=== PATIENT | male | born 1935 | race Caucasian/White ===

== ENCOUNTER 2022-02-13 23:29 | Observation (INO) | payer OTHER, MEDICARE ==
[~2022-02-13] VITALS: Ht 188 cm; Wt 104.3 kg
[2022-02-13 23:47] LABS: BASOPHILS ABSOLUTE AUTO 0.01 K/mm3 (0.00-0.23); BASOPHILS PERCENT AUTO 0 % (0-2); EOSINOPHILS ABSOLUTE AUTO 0.12 K/mm3 (0.00-0.68); EOSINOPHILS PERCENT AUTO 4 % (0-6); Hematocrit 31.5 % (37.0-53.0); Hemoglobin 9.8 g/dL (13.5-17.5); IMMATURE GRAN ABSOLUTE AUTO 0.01 K/mm3 (0.00-0.10); IMMATURE GRAN PERCENT AUTO 0 % (0-1); LYMPHOCYTES PERCENT AUTO 25 % (21-46); MONOCYTES ABSOLUTE AUTO 0.43 K/mm3 (0.16-1.47); MONOCYTES PERCENT AUTO 14 % (4-13); Mean Corpuscular HGB 28.6 pg (26.0-34.0); Mean Corpuscular HGB Conc 31.1 g/dL (31.5-36.5); Mean Corpuscular Volume 92 fL (80-100); Mean Platelet Volume 10.4 fL (9.1-12.4); NEUTROPHILS ABSOLUTE AUTO 1.81 K/mm3 (1.96-9.15); NEUTROPHILS PERCENT AUTO 57 % (41-73); Platelet Count 117 K/mm3 (150-400); RDW Coefficient Variation 17.1 % (11.7-14.2); RDW Standard Deviation 57.6 fL (35.1-46.3); Red Blood Cell Count 3.43 M/mm3 (4.30-5.90); White Blood Cell Count 3.18 K/mm3 (4.00-11.30)
[2022-02-13] MEDS ORDERED: ATOR20 PO (23:48)
[2022-02-13] MEDS ORDERED: ASCO500 PO (23:48)
[2022-02-13] MEDS ORDERED: AMLO5 PO (23:48)
[2022-02-13] MEDS ORDERED: Carvedilol12.5 MG PO (23:49)
[2022-02-13] MEDS ORDERED: B-12500 MC2 PO (23:49)
[2022-02-13] MEDS ORDERED: Voltaren100 GM TOP (23:50)
[2022-02-13] MEDS ORDERED: Epogen SC (23:51)
[2022-02-13] MEDS ORDERED: Flonase 0.05% N16 GM (23:51)
[2022-02-13] MEDS ORDERED: FOLI1 PO (23:52)
[2022-02-13] MEDS ORDERED: GABA300 PO (23:52)
[2022-02-13] MEDS ORDERED: BASAGLAR K100 UNIT/1 SC (23:52)
[2022-02-13] MEDS ORDERED: MIRT15ST PO (23:53)
[2022-02-13] MEDS ORDERED: LORA10ER PO (23:53)
[2022-02-13] MEDS ORDERED: ISOSORBIDE MONO60 MG PO (23:53)
[2022-02-13] MEDS ORDERED: MIRALAX17 GM PO (23:54)
[2022-02-13] MEDS ORDERED: Coumadin3 MG PO (23:54)
[2022-02-13] MEDS ORDERED: Coumadin2 MG PO (23:54)
[2022-02-13] MEDS ORDERED: ALBU2.5V5 INH (23:55)
[2022-02-13] MEDS ORDERED: ACET325 PO (23:55)
[2022-02-13] MEDS ORDERED: NITR.4SL SL (23:56)
[2022-02-13] MEDS ORDERED: ONDA4ODT MM (23:57)
[2022-02-14] LABS: Albumin, Blood 2.9 g/dL (3.4-5.0); Albumin/Globulin Ratio 0.7 (0.8-1.8); Bilirubin, Total 0.7 mg/dL (0.1-1.0); Calcium, Blood 8.3 mg/dL (8.5-10.1); Creatinine, Blood 1.22 mg/dL (0.60-1.20); Globulin, Blood 4.4 g/dL (2.2-4.0); Potassium, Blood 4.9 mmol/L (3.5-5.5); Total Protein, Blood 7.3 g/dL (6.4-8.2)
[2022-02-14 00:04] LABS: International Normalized Ratio 2.92; Prothrombin Time Results 28.6 Sec (9.7-11.5)
[2022-02-14 03:49] LABS: CHOL/HDL RATIO 2.5; Cholesterol 124 mg/dL (50-200); Ferritin, Serum 100 ng/mL (26-388); HDL Cholesterol 50 mg/dL (>39); Iron Serum 47 ug/dL (65-175); LDL/HDL RATIO 1.2; Low Density Lipoprotein Chol 58 mg/dL (0-110); Percent Saturation 16.2 % (20.0-50.0); Total Iron Binding Capacity 290 ug/dL (250-450); Triglycerides 81 mg/dL (30-160); Very Low Density Lipoprot Chol 16 mg/dL (6-32)
[2022-02-14 05:13] LABS: BASOPHILS ABSOLUTE AUTO 0.02 K/mm3 (0.00-0.23); BASOPHILS PERCENT AUTO 1 % (0-2); EOSINOPHILS ABSOLUTE AUTO 0.09 K/mm3 (0.00-0.68); EOSINOPHILS PERCENT AUTO 3 % (0-6); Hematocrit 31.5 % (37.0-53.0); Hemoglobin 10.1 g/dL (13.5-17.5); IMMATURE GRAN ABSOLUTE AUTO 0.01 K/mm3 (0.00-0.10); IMMATURE GRAN PERCENT AUTO 0 % (0-1); LYMPHOCYTES ABSOLUTE AUTO 0.76 K/mm3 (0.84-5.20); LYMPHOCYTES PERCENT AUTO 23 % (21-46); MONOCYTES ABSOLUTE AUTO 0.41 K/mm3 (0.16-1.47); MONOCYTES PERCENT AUTO 12 % (4-13); Mean Corpuscular HGB 29.3 pg (26.0-34.0); Mean Corpuscular HGB Conc 32.1 g/dL (31.5-36.5); Mean Corpuscular Volume 91 fL (80-100); Mean Platelet Volume 10.1 fL (9.1-12.4); NEUTROPHILS ABSOLUTE AUTO 2.04 K/mm3 (1.96-9.15); NEUTROPHILS PERCENT AUTO 61 % (41-73); Platelet Count 105 K/mm3 (150-400); RDW Coefficient Variation 17.1 % (11.7-14.2); RDW Standard Deviation 57.7 fL (35.1-46.3); Red Blood Cell Count 3.45 M/mm3 (4.30-5.90); White Blood Cell Count 3.33 K/mm3 (4.00-11.30)
[2022-02-14 05:28] LABS: International Normalized Ratio 3.15; Prothrombin Time Results 30.7 Sec (9.7-11.5)
[2022-02-14 05:36] LABS: Albumin, Blood 2.9 g/dL (3.4-5.0); Anion Gap 5 mmol/L (6-16); Blood Urea Nitrogen 34 mg/dL (8-24); Bun/Creatinine Ratio 29.1 (12.0-20.0); CO2, Blood 23 mmol/L (21-32); Calcium, Blood 8.3 mg/dL (8.5-10.1); Chloride, Blood 110 mmol/L (98-108); Creatinine, Blood 1.17 mg/dL (0.60-1.20); Glomerular Filtration Rate 61 (60-); Glucose, Blood 145 mg/dL (70-99); Potassium, Blood 5.4 mmol/L (3.5-5.5); Sodium, Blood 138 mmol/L (136-145)
--- NOTE | 2022-02-14 07:28 | NUR ---
ADMITTED FOR C/O CHEST PAIN. ORIENTED TO ROOM 262 AT 0500. A/OX4; CALM AND COOPERATIVE. C/O CHEST PAIN AT 6/10; PLACED ON TELEMETRY. NITRO GIVEN 3X. ECG DONE; A-FIB. 2L O2 VIA NC. VSS. MD INFORMED; ORDER TO GIVE REPEAT DOSE OF FENTYNAL. PATIENT STATES 1-2 CHEST PAIN S/P INTERVENTIONS. C/O [place]; DECLINED OFFERED TYLENOL. NPO FOR STRESS TEST. BED ALARM SET, CALL LIGHT IN REACH; ENCOURAGED TO MAKE NEEDS KNOWN.
[2022-02-14] MEDS ORDERED: ALMACONE SUSPE355 ML PO (22:50)
--- NOTE | 2022-02-15 05:33 | NUR ---
SUMMARY: PT A/OX4 AND SPECIFIES NEEDS WHEN STAFF IN ROOM BUT HE OFTEN OVERESTIMATES HIS ABILITIES AND FORGETS HIS CURRENT LIMITATIONS. HE'S WEAKER THAN BASELINE AND SO USES URINAL/BEDPAN AT PRESENT. HE'S DENIED CP AND ALL OTHER S/S CARDIAC DISTRESS AND REMAINS AFIB AT 50'S-60'S BPM ON TELEMETRY. PT ON RA AT HOME BUT CURRENTLY REQ'S 2L O2 VIA NC HE CONT'S TO RECOVER FROM BEING FLU(+) PRIOR TO ADMIT (02/04/22 PER REPORT). NO S/S RESP DISTRESS BUT HE IS SLIGHLTY SOB W/EXERTION AND REPOSITIONING. NO ACUTE CHANGES, VSS/AFEBRILE. POSSIBLE D/C TODAY. WCTM AND REPORT TO DAY RN.
[2022-02-15 07:12] LABS: International Normalized Ratio 2.95; Prothrombin Time Results 28.9 Sec (9.7-11.5)
[2022-02-15] MEDS ORDERED: FURO40 PO (10:19)
[2022-02-15 13:33] LABS: SARS-Cov-2 (COVID-19) PCR, MMC NEGATIVE (NEGATIVE)
--- NOTE | 2022-02-15 16:47 | NUR ---
PT IS A/OX3, PLEASANT AND COOPERATIVE. THE PT IS UP WITH MINIMAL ASSIST TO THE CHAIR. THE PT WAS IN THE CHAIR TODAY FOR SEVERAL HOURS( BREAKAST PAST LUNCH). PT APPEARS TO BE BREATHING EASILY ON RA AT THIS TIME. PT DENIED ANY PAIN T/O THE DAY. [facility] CALL LIGHT IN REACH, WILL CONTINUE TO MONITOR AND ASSESS FOR CHANGES
--- NOTE | 2022-02-16 04:09 | NUR ---
SHIFT MOSTLY UNREMARKABLE. PATIENT TOOK 2100 MEDICATIONS WITHOUT DIFFICULTY AND SLEPT THROUGH REMAINDER OF SHIFT UNTIL MORNING MEDICATIONS. PATIENT SEEMINGLY READY FOR DISCHARGE TODAY. CALL LIGHT LEFT WITHIN REACH.
[2022-02-16 04:49] LABS: International Normalized Ratio 2.45; Prothrombin Time Results 24.3 Sec (9.7-11.5)
--- NOTE | 2022-02-16 10:12 | NUR ---
PT DISCHARGED PT TRANSFERED TO THE [facility]. REPORT GIVEN TO RN AT THE RI. THE PT APPEARED TO BE BREATHING EASILY ON RA AT THE TIME OF TRANSFER. PT WAS TRANSFERED VIA WHEELCHAIR ACCOMPANIED BY [facility]. BELONGINGS RELEASED TO THE PT
== END 2022-02-16 09:50 | disposition home or self-care (01) ==
LOC: ER 23:29 → MEDS 23:30 → ENPENDDIS 02-15 12:56 → MEDS 02-16 09:50
PROVIDERS: Internal Medicine; Student in an Organized Health Care Education/Training Program; ADMIT Family Medicine
DX: R07.9 Chest pain, unspecified (principal); I25.10 Atherosclerotic heart disease of native coronary artery without angina pectoris; Z95.1 Presence of aortocoronary bypass graft; I50.31 Acute diastolic (congestive) heart failure; I48.91 Unspecified atrial fibrillation; Z79.01 Long term (current) use of anticoagulants; D61.818 Other pancytopenia; Z88.5 Allergy status to narcotic agent; Z88.8 Allergy status to other drugs, medicaments and biological substances; N18.30 Chronic kidney disease, stage 3 unspecified; I13.0 Hypertensive heart and chronic kidney disease with heart failure and stage 1 through stage 4 chronic kidney disease, or unspecified chronic kidney disease; E11.22 Type 2 diabetes mellitus with diabetic chronic kidney disease; Z20.822 Contact with and (suspected) exposure to COVID-19
CPT/HCPCS: 36415; 71045; 78452; 80053; 80061; 80069; 82607; 82728; 82746; 82947; 83540; 83550; 83880; 84484; 85025; 85610; 93005; 93010; 93017; 93306; 94760; 96374; 96375; 96376; 99285-25; A9270; A9500; G0378; J0280; J1815; J1940; J2785; J3010; U0004